=== PATIENT | male | born 1980 | race Two or more races ===

== ENCOUNTER 2021-06-23 11:37 | Emergency (ER) | payer SELFPAY ==
[~2021-06-23] VITALS: Ht 170.2 cm; Wt 65.0 kg
[2021-06-23] MEDS ORDERED: SODIUM CHLORIDE 0.9% 1,000 ML IV ONE (12:30)
[2021-06-23 13:00] LABS: BASOPHILS % 0.8 % (0.0-2.0); EOSINOPHILS % 1.3 % (0.0-5.0); HEMOGLOBIN. 17.3 g/dL (14.0-18.0); LYMPHOCYTES % 31.2 % (20.0-50.0); MEAN CORPUSCULAR HEMOGLOBIN 30.5 pg (28.0-32.0); MEAN CORPUSCULAR VOLUME 89.7 fL (80.0-94.0); MONOCYTES % 4.4 % (2.0-8.0); NEUTROPHILS % 62.3 % (40.0-76.0); RED BLOOD CELL COUNT 5.68 mill/uL (4.7-6.1); RED CELL DISTRIBUTION WIDTH 13.3 % (11.6-14.6)
[2021-06-23 13:28] LABS: CHLORIDE 105 mEq/L (98-107)
[2021-06-23 13:30] LABS: PLATELET 201 x1000/uL (130-400)
[2021-06-23 16:32] VITALS: BP 156/81
== END 2021-06-23 16:55 | disposition home or self-care (01) ==
LOC: ER 11:37
DX: B34.9 Viral infection, unspecified (principal); M79.10 Myalgia, unspecified site; I10 Essential (primary) hypertension
CPT/HCPCS: 36415; 71045; 80053; 83605; 83880; 84484; 85025; 93005; 99285; J7030